=== PATIENT | female | born 1950 | race Caucasian/White ===

== ENCOUNTER 2016-10-18 10:20 | Emergency (ER) | payer OTHER ==
[2016-10-18 10:39] VITALS: PULSE 89; RESP 20
[2016-10-18] MEDS ORDERED: IBUPROFEN 600 MG TAB PO STA (10:48)
[2016-10-18] MEDS ORDERED: ALPRAZolam 0.25 MG TAB PO STA (10:48)
--- NOTE | 2016-10-18 10:53 | ED ---
General Adult HPI - General Chief complaint: Extremity Injury, Upper Stated complaint: rib pain from grandson falling back on her Time Seen by Provider: 10/18/16 10:36 Source: patient, family, RN notes reviewed Mode of arrival: ambulatory Limitations: no limitations - History of Present Illness Initial comments: Patient 65-year-old female who presents emergency room today with a chief complaint of left-sided chest wall pain after being accidentally head butted by her grandson 2 days ago. Patient does admit that she's been having increased pain to the left side of the chest wall. She states worse with certain movements or if she coughs or sneezes. Patient states she did try Tylenol this morning with little relief of symptoms. Patient denies any shortness of breath or difficulty breathing. She denies any other associated symptoms due to this injury. She does admit that recently both her and son . She does admit that she's been having some increased anxiety with feeling shaky due to this. She states she was given a Valium which did seem to help. She denies any other complaints or symptoms. Patient denies any recent fever, chills , shortness of breath, back pain, abdominal pain, nausea or vomiting, numbness or tingling, dysuria or hematuria, constipation or diarrhea, headaches or visual changes, or any other complaints. - Related Data Previous Rx's Medication Instructions Recorded ALPRAZolam [Xanax] 0.25 mg PO BID PRN #15 tab 10/18/16 Hydrocodone/Acetaminophen [[place] 1 each PO Q6HR PRN #20 tab 10/18/16 5-325] Ibuprofen [Motrin] 600 mg PO Q6HR PRN #40 day 10/18/16 Allergies Allergy/AdvReac Type Severity Reaction Status Date / Time sulfamethoxazole Allergy Unknown Verified 10/18/16 10:33 [From Bactrim] trimethoprim [From Bactrim] Allergy Unknown Verified 10/18/16 10:33 Review of Systems ROS Statement: Those systems with pertinent positive or pertinent negative responses have been documented in the HPI. ROS Other: All systems not noted in ROS Statement are negative. Past Medical History Past Medical History: COPD, Hyperlipidemia, Hypertension History of Any Multi-Drug Resistant Organisms: None Reported Past Surgical History: Cholecystectomy Past Psychological History: Anxiety, Depression Smoking Status: Current every day smoker Past Alcohol Use History: None Reported Past Drug Use History: None Reported General Exam - General Exam Comments Initial Comments: General: The patient is awake and alert, in no distress, and does not appear acutely ill. Eye: Pupils are equal, round and reactive to light, extra-ocular movements are intact. No nystagmus. There is normal conjunctiva bilaterally. No signs of icterus. Ears, nose, mouth and throat: There are moist mucous membranes and no oral lesions. Neck: The neck is supple, there is no tenderness or JVD. Cardiovascular: There is a regular rate and rhythm. No murmur, rub or gallop is appreciated. Respiratory: Lungs are clear to auscultation, respirations are non-labored, breath sounds are equal. No wheezes, stridor, rales, or rhonchi. Gastrointestinal: Soft, non-distended, non-tender abdomen without masses or organomegaly noted. There is no rebound or guarding present. No CVA tenderness. Bowel sounds are unremarkable. Musculoskeletal: Appears less than chest wall is no obvious deformity. Does have tenderness over the third through fifth anterior left rib. Strength 5/5. Sensation intact. Pulses equal bilaterally 2+. Neurological: A&O x 3. CN II-XII intact, There are no obvious motor or sensory deficits. Coordination appears grossly intact. Speech is normal. Skin: Skin is warm and dry and no rashes or lesions are noted. Psychiatric: Cooperative, appropriate mood & affect, normal judgment. Limitations: no limitations Course Vital Signs 10/18/16 10:34 Temperature 97.4 F L Pulse Rate 89 Respiratory 20 Rate Blood Pressure 139/78 O2 Sat by Pulse 100 Oximetry Medical Decision Making - Medical Decision Making Patient's x-ray reviewed shows no sign of acute fracture dislocation of the ribs. Chest x-ray unremarkable for any new changes. Results were discussed with the patient. Patient will be discharged home. She'll be placed on a complications of ibuprofen along with given a prescription for [place]. She will be given a prescription for Xanax as there have been a few recent deaths in the family. She will be following up with the family doctor next week. Patient advised return for any other concerns. Disposition Clinical Impression: Rib contusion Disposition: HOME SELF-CARE Condition: Good Instructions: Rib Contusion (ED) Additional Instructions: Please use medication as discussed. Please follow-up with family doctor in the next 2 days of symptoms have not improved. Please return to emergency room if the symptoms increase or worsen or for any other concerns. Prescriptions: ALPRAZolam [Xanax] 0.25 mg PO BID PRN #15 tab PRN Reason: Anxiety Hydrocodone/Acetaminophen [[place] 5-325] 1 each PO Q6HR PRN #20 tab PRN Reason: Pain Ibuprofen [Motrin] 600 mg PO Q6HR PRN #40 day PRN Reason: Pain Time of Disposition: 12:18
--- NOTE | 2016-10-18 12:07 | XR ---
EXAMINATION TYPE: XR ribs LT w pa chest x-ray DATE OF EXAM: 10/18/2016 11:04 AM CLINICAL HISTORY: Chest and left-sided rib pain. TECHNIQUE: Single frontal view of the chest is obtained. A frontal and oblique images of the left-willam ed ribs are acquired. COMPARISON: None FINDINGS: Underlying emphysematous change is present. There is no focal air space opacity, pleural e ffusion, or pneumothorax seen. The cardiac silhouette size is within normal limits. The osseous st ructures are somewhat demineralized. Dedicated images of the left-sided ribs show no acute displaced fracture. Overlying soft tissue is un remarkable. IMPRESSION: 1. Chronic emphysematous change without acute pulmonary process. 2. No acute displaced left-sided rib fractures are evident.
[2016-10-18 12:35] VITALS: BP 119/70; TEMP 98.8
== END 2016-10-18 12:46 | disposition home or self-care (01) ==
LOC: EC 10:20
DX: S20.212A Contusion of left front wall of thorax, initial encounter (principal); W50.0XXA Accidental hit or strike by another person, initial encounter; F17.200 Nicotine dependence, unspecified, uncomplicated; Z88.2 Allergy status to sulfonamides
CPT/HCPCS: 99283